=== PATIENT | male | born 1940 | race Caucasian/White ===

== ENCOUNTER 2016-07-06 23:38 | Emergency (ER) | payer MEDICARE, BC ==
[~2016-07-06] VITALS: Ht 172.7 cm; Wt 80.0 kg
[~2016-07-06 23:38] MED LIST: ASPI-94 PO; BENA20 PO; METO50 PO; SIMV40 PO
[2016-07-06 23:40] VITALS: BP 176/79; PULSE 62; RESP 16; TEMP 98; O2SAT 96
[2016-07-06 23:55] VITALS: BP 145/63; PULSE 60; RESP 18; O2SAT 97
[2016-07-07] MEDS ORDERED: ASPI1TAB69 PO (00:22)
[2016-07-07] MEDS ORDERED: METO50TA PO (00:23)
[2016-07-07] MEDS ORDERED: BENA40TA PO (00:23)
[2016-07-07] MEDS ORDERED: SIMV40TA PO (00:23)
--- NOTE | 2016-07-07 00:58 | PD ---
HPI Chief Complaint: Skin Problem Time Seen by Provider: 00:54 Travel History International Travel<30 days: No Contact w/Intl Traveler<30days: No Traveled to known affect area: No History of Present Illness HPI 76-year-old male arrives with bleeding from the left leg. It started suddenly. Application of silk tape stopped bleeding. He denies trauma. He takes aspirin 81 mg daily. He takes no other anticoagulation. He offers no symptom consistent with acute anemia. [facility] Past Medical History High Cholesterol: Yes Diminished Hearing: No Hypertension: Yes Past Surgical History Other Surgery: Yes (5 VEIN SURGERIES TO R LOWER LEG) Social History Alcohol Use: Yes (4 BEERS A DAY) Tobacco Use: Yes (SOCIAL SMOKER) Substance Use: No Allergies-Medications (Allergen,Severity, Reaction): Coded Allergies: No Known Allergies (Unverified , 07/06/16) Reported Meds & Prescriptions Reported Meds & Active Scripts Active Reported Benazepril (Benazepril HCl) 40 Mg Tab 40 Mg PO DAILY Simvastatin 40 Mg Tab 40 Mg PO DAILY Metoprolol Tartrate 50 Mg Tab 50 Mg PO DAILY Aspirin 81 Mg Tabdr 81 Mg PO DAILY Review of Systems General / Constitutional: No: Fever Cardiovascular: No: Chest Pain or Discomfort, Palpitations, Tachycardia, Diaphoresis Physical Exam Narrative GENERAL: Well-nourished well-developed 76-year-old male no acute distress SKIN: Warm and dry. There is a minute focus of arterial bleed along the left lateral lower leg approximately 10 cm above the lateral malleolus. MUSCULOSKELETAL: Extremities without clubbing, cyanosis, or edema. No obvious deformities. 4+ edema bilateral lower extremities. Data Data Last Documented VS Vital Signs Date Time Temp Pulse Resp B/P Pulse Ox O2 Delivery O2 Flow Rate FiO2 07/07/16 01:05 62 16 144/87 97 07/06/16 23:55 Room Air 07/06/16 23:40 98.0 MDM Medical Decision Making Medical Screen Exam Complete: Yes Emergency Medical Condition: Yes Medical Record Reviewed: Yes Differential Diagnosis Anemia, laceration, hypocoagulable state Narrative Course The left lower extremity was dressed with a 4 x 4 and silk tape. The bleeding stopped. Return precautions discussed. Directions for at home management discussed. Diagnosis Primary Impression: Bleeding Referrals: Maxwell Gallardo MD as needed Additional Instructions: You have a choice when it comes to health care, and we are glad that you chose [facility]. Hopefully, we have met your expectations on today's visit. You are welcome to return to [facility] at any time, as we are committed to meeting the health care needs of our community. Med/Other Pt SpecificInfo: No Change to Meds Disposition: 01 DISCHARGE HOME Condition: Umang Lilly MD Jul 07, 2016 00:58
[2016-07-07 01:05] VITALS: BP 144/87
== END 2016-07-07 01:05 | disposition home or self-care (01) ==
LOC: NEPE 23:38
DX: R58 Hemorrhage, not elsewhere classified (principal); E78.00 Pure hypercholesterolemia, unspecified; I10 Essential (primary) hypertension; Z72.0 Tobacco use; Z79.82 Long term (current) use of aspirin
CPT/HCPCS: 99283

== ENCOUNTER 2018-05-23 13:44 | Observation (INO) ==
[2018-05-23] MEDS ORDERED: NIFEdipine 10 MG Capsule PO ONE (16:04)
[2018-05-23] MEDS ORDERED: Atropine Inj 1 MG/ML Vial IV.PUSH ONE (16:04)
--- NOTE | 2018-05-23 16:19 | ED ---
HPI General Chief complaint: Nausea/Vomiting/Diarrhea Stated complaint: GI//Fall/Dizzy Complaint Time Seen by Provider: 05/23/18 15:54 History of Present Illness HPI narrative: This patient was feeling fine yesterday. This morning he woke up feeling lightheaded and was stumbling around. Blood pressures were running over 200 systolic at home. He did not have any headache or chest pain. He stumbled and fell and hit the right side of his face on the ground. No neck symptoms. He did not have motor weakness of arms or legs or sensory loss or speech slurring. He has history of dementia. He is also on Eliquis. He does not know why. Symptom severity is moderate. No alleviating factors. No exacerbating factors. Related Data Home Medications Medication Instructions Recorded Confirmed apixaban [Eliquis] 5 mg PO BID 05/23/18 05/23/18 benazepril 40 mg PO DAILY 05/23/18 05/23/18 donepezil 10 mg PO DAILY 05/23/18 05/23/18 folic acid 0.8 mg PO BID 05/23/18 05/23/18 memantine 10 mg PO BID 05/23/18 05/23/18 metoprolol tartrate 50 mg PO BID 05/23/18 05/23/18 simvastatin 40 mg PO QPM 05/23/18 05/23/18 Allergies Allergy/AdvReac Type Severity Reaction Status Date / Time No Known Allergies Allergy Verified 05/23/18 14:16 Review of Systems ROS: all other systems reviewed are negative [facility] Medical History Medical History Hyperlipemia (Acute) Hypertension (Acute) Social History Social History Second Hand Smoke Exposure: Yes Smoking Status: Current every day smoker Tobacco Type: Cigarettes How Often Do You Have a Drink Containing Alcohol: 4 or more times a week Recent Travel in [facility] within the Last 8 Weeks: No Recent Out of Country Travel within the Last 8 Weeks: No Immunization History Tetanus Immunization: Unsure Exam Narrative Exam Narrative: GENERAL: Well-nourished, well-developed patient in no apparent distress. SKIN: Focused skin assessment reveals no rash and nodules. Skin is Warm and dry. HEAD: Some ecchymosis in the right cheek but the area is nontender. Normocephalic. EYES: Pupils equal and round. No scleral icterus. No injection or drainage. ENT: No nasal bleeding or discharge. Mucous membranes pink and moist. NECK: Trachea midline. No JVD. No midline tenderness CARDIOVASCULAR: Regular rate and rhythm. No murmur appreciated. Heart rate is low in the range of 44-50 RESPIRATORY: No accessory muscle use. Clear to auscultation. Breath sounds equal bilaterally. GASTROINTESTINAL: Abdomen soft, non-tender, nondistended. Hepatic and splenic margins not palpable. MUSCULOSKELETAL: No obvious deformities. No clubbing. No cyanosis. No edema. NEUROLOGICAL: Awake and alert. No obvious cranial nerve deficits. Motor grossly within normal limits. Normal speech. PSYCHIATRIC: Appropriate mood and affect; insight and judgment normal. Course Initial Documented Vital Signs Pulse Rate 45 L 05/23/18 14:12 Respiratory Rate 18 05/23/18 14:12 Blood Pressure 200/82 H 05/23/18 14:12 Pulse Oximetry 99 05/23/18 14:12 Last Documented Vital Signs Pulse Rate 49 L 05/23/18 18:41 Respiratory Rate 17 05/23/18 18:41 Blood Pressure 166/76 H 05/23/18 18:41 Pulse Oximetry 100 05/23/18 18:41 Medical Decision Making MDM Narrative Medical decision making narrative: 78-year-old male with 1 day history of lightheadedness and stumbling with a fall and facial injury. Given his Eliquis therapy, I am going to get a brain CT. Labs have been sent. I do not see any objective neurologic deficit. He is hypertensive and bradycardic. Given him a dose of atropine and a dose of Procardia and will reassess vitals closely. He is maintained on telemetry. Patient has had some significant hypertension and bradycardia issues. Both have improved at present. He is not able to walk however he stumbles and is having ataxia. He would certainly fall over without support. He already fell and injured his head and face once today. He is not stable for outpatient follow-up. Possibly has posterior circulation compromise but hard to know at present. Regular brain CT is negative. Labs are normal. Case reviewed with the hospitalist who will do observation Medical Screen Exam Complete: Yes Emergency Medical Condition: Yes Differential Diagnosis Differential Diagnosis: Intracranial hemorrhage, concussion, hypertensive urgency Medical Records Medical records reviewed: Yes I reviewed the patient's medical records. Lab Data Lab results reviewed: Yes I reviewed the patient's lab results. Result diagrams: 05/23/18 16:27 05/23/18 16:27 Lab Results 05/23/18 05/23/18 05/23/18 Range/Units 15:56 16:27 16:27 WBC 8.1 (4.0-11.0) th/mm3 RBC 4.63 (4.50-5.90) mil/mm3 Hgb 15.6 (13.0-17.0) gm/dL Hct 44.6 (39.0-51.0) % MCV 96.3 (80.0-100.0) fL MCH 33.8 (27.0-34.0) pg MCHC 35.1 (32.0-36.0) % RDW 13.2 (11.6-17.2) % Plt Count 140 L (150-450) th/mm3 MPV 8.8 (7.0-11.0) fL Neut % (Auto) 80.4 H (16.0-70.0) % Lymph % (Auto) 13.6 (9.0-44.0) % Travis % (Auto) 4.9 (0.0-8.0) % Eos % (Auto) 0.9 (0.0-4.0) % Baso % (Auto) 0.2 (0.0-2.0) % Neut # (Auto) 6.6 (1.8-7.7) th/mm3 Lymph # (Auto) 1.1 (1.0-4.8) th/mm3 Travis # (Auto) 0.4 (0.0-0.9) th/mm3 Eos # (Auto) 0.1 (0.0-0.4) th/mm3 Baso # (Auto) 0.0 (0.0-0.2) th/mm3 WBC Differential . Differential Comment Auto diff final Sodium 132 L (136-145) meq/L Potassium 4.1 (3.5-5.1) meq/L Chloride 97 L (98-107) meq/L Carbon Dioxide 30.2 (21.0-32.0) meq/L Anion Gap 5 (5-15) meq/L BUN 19 H (7-18) mg/dL Creatinine 0.89 (0.60-1.30) mg/dL Estimated GFR 83 L (>89) mL/min POC Glucose 94 (68-110) mg/dl Random Glucose 111 H (74-106) mg/dL Calcium 9.0 (8.5-10.1) mg/dL Total Bilirubin 1.0 (0.2-1.0) mg/dL AST 34 (15-37) U/L ALT 41 (12-78) U/L Alkaline Phosphatase 70 (45-117) U/L Total Protein 8.0 (6.4-8.2) g/dL Albumin 4.0 (3.4-5.0) g/dL Imaging Data Attestation: I personally reviewed and interpreted this imaging study as follows : Radiologist's impression: Head CT 05/23/18 16:04 CONCLUSION: 1. Ethmoid sinus disease and right maxillary sinus disease. 2. No acute intracranial findings. . ECG Data EKG Prior to Arrival: No Attestation: I personally reviewed and interpreted this ECG as follows: Prior ECG tracings: not available for review Interpretation: EKG shows a sinus bradycardia at 45. GA interval is 191 ms. No ectopy or ST elevation. Kevin is normal. Discharge Plan Discharge Disposition Patient Disposition: ED Admit(ED Internal Use Only) Discharge Order Discharge Orders: ED Use Only Admit Order (Routine); Ordered 05/23/18 Ordered By: Cullen Patel Discharge Details Diagnosis: Lightheadedness, Ataxia, Unable to ambulate Physicians Team ED Provider: Cullen Patel Primary Care Provider: aMxwell Gallardo Attending Provider: Luda Hicks Discharge Interventions Interventions: Vital Signs Last Done: 05/23/18 18:41 Status ED Status: Admitted Observation Patient
[2018-05-23 16:44] LABS: Baso % (Auto) 0.2 % (0.0-2.0); Eos # (Auto) 0.1 th/mm3 (0.0-0.4); Eos % (Auto) 0.9 % (0.0-4.0); Hematocrit 44.6 % (39.0-51.0); Hemoglobin 15.6 gm/dL (13.0-17.0); Lymph # (Auto) 1.1 th/mm3 (1.0-4.8); Lymph % (Auto) 13.6 % (9.0-44.0); Mean Corpuscular HGB Conc 35.1 % (32.0-36.0); Mean Corpuscular Hemoglobin 33.8 pg (27.0-34.0); Mean Corpuscular Volume 96.3 fL (80.0-100.0); Mean Platelet Volume 8.8 fL (7.0-11.0); Mono # (Auto) 0.4 th/mm3 (0.0-0.9); Mono % (Auto) 4.9 % (0.0-8.0); Neut # (Auto) 6.6 th/mm3 (1.8-7.7); Neut % (Auto) 80.4 % (16.0-70.0); Platelet Count 140 th/mm3 (150-450); Red Blood Count 4.63 mil/mm3 (4.50-5.90); Red Cell Distribution Width 13.2 % (11.6-17.2); White Blood Count 8.1 th/mm3 (4.0-11.0)
[2018-05-23 16:58] LABS: Alanine Aminotransferase 41 U/L (12-78); Anion Gap 5 meq/L (5-15); Aspartate Aminotransferase 34 U/L (15-37); Blood Urea Nitrogen 19 mg/dL (7-18); Carbon Dioxide 30.2 meq/L (21.0-32.0); Chloride 97 meq/L (98-107); Glomerular Filtration Rate 83 mL/min (>89); Glucose,Random 111 mg/dL (74-106); Potassium 4.1 meq/L (3.5-5.1); Sodium 132 meq/L (136-145)
[2018-05-23 16:59] LABS: Alkaline Phosphatase 70 U/L (45-117)
--- NOTE | 2018-05-23 18:12 | CT ---
EXAM DATE: 05/23/2018 6:06 PM EST AGE/SEX: 78 years / Male INDICATIONS: Dizziness. CLINICAL DATA: This is the patient's initial encounter. Patient reports that signs and symptoms have been present for 1 day and indicates a pain score of 0/10. MEDICAL/SURGICAL HISTORY: Hypertension. None. RADIATION DOSE: 44.49 CTDI (mGy) [place] [facility] [place]. . TECHNIQUE: CT of the head without contrast. Using automated exposure control and adjustment of the mA and/or kV according to patient size, radiation dose was kept as low as reasonably achievable to ob tain optimal diagnostic quality images. DICOM format image data is available electronically for revi ew and comparison. FINDINGS: Cerebrum: The ventricles are normal for age. No evidence of midline shift, mass lesion, hemorrhage or acute infarction. No extraaxial fluid collections are seen. Posterior Fossa: The cerebellum and brainstem are intact. The 4th ventricle is midline. The cerebe llopontine angle is unremarkable. Extracranial: Moderate severity partial opacification of the ethmoid sinuses. Right maxillary sinus polyp or retention cyst again seen. Skull: The calvaria is intact. No evidence of skull fracture. CONCLUSION: 1. Ethmoid sinus disease and right maxillary sinus disease. 2. No acute intracranial findings. . Electronically signed by: Mina Salas MD Board Certified Radiologist 05/23/2018 6:10 PM EST
[2018-05-23] MEDS ORDERED: Acetaminophen 325 MG Tablet PO PRN (19:12)
[2018-05-23] MEDS ORDERED: Bisacodyl 10 MG Supp RECTAL PRN (19:12)
--- NOTE | 2018-05-23 19:26 | P.HPIM ---
History of Present Illness Primary Care Physician: Maxwell Gallardo MD History of Present Illness: This is a 78-year-old male with a PMH of HTN, Hyperlipidemia, Dementia and Chronic Anticoagulation who was brought to the ER after fall. Pt reports waking up this morning w/ significant dizziness and gait instability leading to fall. Denies LOC but did have head trauma. No previous h/o similar symptoms in the past. Denies fever, chills, dysuria, chest pain or SOB. On arrival, BP 200/82, HR 45, O2 sat 99% on RA. CBC unremarkable except for platelets 140. Chemistry essentially unremarkable except for BUN 19. CT Head with no acute findings. Pt attempted ambulation while in ER, however significant ataxia, requiring assistance. Diagnosis (1) Ataxia: (2) Fall: (3) Bradycardia: (4) HTN (hypertension): Review of Systems PAST FAMILY HISTORY: Reviewed. No h/o DM or CAD Review of Systems: all other systems reviewed are negative [facility] Medical History Medical History Hyperlipemia (Acute) Hypertension (Acute) Social History Social History Second Hand Smoke Exposure: Yes Smoking Status: Current every day smoker Tobacco Type: Cigarettes How Often Do You Have a Drink Containing Alcohol: 4 or more times a week Recent Travel in [facility] within the Last 8 Weeks: No Recent Out of Country Travel within the Last 8 Weeks: No Immunization History Tetanus Immunization: Unsure Medications and Allergies Allergies Allergy/AdvReac Type Severity Reaction Status Date / Time No Known Allergies Allergy Verified 05/23/18 14:16 Home Medications Medication Instructions Recorded Confirmed Type apixaban [Eliquis] 5 mg PO BID 05/23/18 05/23/18 History benazepril 40 mg PO DAILY 05/23/18 05/23/18 History donepezil 10 mg PO DAILY 05/23/18 05/23/18 History folic acid 0.8 mg PO BID 05/23/18 05/23/18 History memantine 10 mg PO BID 05/23/18 05/23/18 History metoprolol tartrate 50 mg PO BID 05/23/18 05/23/18 History simvastatin 40 mg PO QPM 05/23/18 05/23/18 History Active Medications: Active Medications Acetaminophen (Tylenol) 650 mg PO Q4H PRN PRN Reason: Temp > 100.4 Al Hydroxide/Mg Hydroxide (Milk Of Magnesia Liq) 30 ml PO Q12H PRN PRN Reason: Mild Constipation Apixaban (Eliquis) 5 mg PO BID HERNAN Bisacodyl (Dulcolax Supp) 10 mg RECTAL DAILY PRN PRN Reason: SEVERE CONSITIPATION Sodium Chloride (Ns Inj) 1,000 mls @ 100 mls/hr IV.CONT .Q10H HERNAN Lactulose (Lactulose Liq) 30 ml PO DAILY PRN PRN Reason: SEVERE CONSITIPATION Memantine (Namenda) 10 mg PO BID HERNAN Non-Formulary Medication (Benazepril [Benazepril]) 40 mg PO DAILY HERNAN Non-Formulary Medication (Donepezil [Donepezil]) 10 mg PO DAILY HERNAN Non-Formulary Medication (Folic Acid [Folic Acid]) 0.8 mg PO BID HERNAN Non-Formulary Medication (Simvastatin [Simvastatin]) 40 mg PO QPM HERNAN Ondansetron HCl (Zofran Inj) 4 mg IV.PUSH Q6H PRN PRN Reason: NAUSEA OR VOMITING Senna/Docusate Sodium (Lisa-Colace) 1 tab PO BID [facility] Sennosides (Senokot) 17.2 mg PO Q12H PRN PRN Reason: Moderate Constipation Sodium Chloride (Ns Flush) 2 ml IV.FLUSH BID HERNAN Sodium Chloride (Ns Flush) 2 ml IV.FLUSH PRN PRN PRN Reason: FLUSH AFTER USING IV ACCESS Physical Exam Vital signs: Last Vital Signs Pulse 49 L 05/23/18 18:41 Resp 17 05/23/18 18:41 BP 166/76 H 05/23/18 18:41 Pulse Ox 100 05/23/18 18:41 Intake & Output 05/21/18 05/22/18 05/23/18 05/24/18 06:59 06:59 06:59 06:59 Weight 77.111 kg Narrative: PE: GENERAL: Pleasantly demented elderly white male in no acute distress. SKIN: Focused skin assessment warm and dry. HEENT: PERRLA, EOMI. No scleral icterus or conjunctival pallor. No lid lag or facial droop. CARDIOVASCULAR: Bradycardia, HR 50s. No obvious murmurs to auscultation. No chest tenderness to palpation. RESPIRATORY: No obvious rhonchi or wheezing. Clear to auscultation. Breath sounds equal bilaterally. GASTROINTESTINAL: Abdomen soft, non-tender, nondistended. BS normal. MUSCULOSKELETAL: Extremities without clubbing, cyanosis, or edema. No obvious deformities. NEUROLOGICAL: Awake, alert and oriented x4. No focal neurologic deficits. Moving both upper and lower extremities spontaneously. PSYCHIATRIC: Appropriate mood and affect. Insight and judgment normal. Results Labs CBC & Chem 7: 05/23/18 16:27 05/23/18 16:[address] 05/23/18 16:04 CONCLUSION: 1. Ethmoid sinus disease and right maxillary sinus disease. 2. No acute intracranial findings. . Caprini VTE Risk Assessment Caprini VTE Risk Assessment: No/Low Risk (score <= 1) Caprini Risk Assessment Model: Point Value = 1 Point Value = 2 Point Value = 3 Point Value = 5 Age 41-60 Minor surgery BMI > 25 kg/m2 Swollen legs Varicose veins or History of unexplained or recurrent spontaneous Oral contraceptives or hormone replacement Sepsis (< 1 month) Serious lung disease, including pneumonia (< 1 month) Abnormal pulmonary function Acute myocardial infarction Congestive heart failure (< 1 month) History of inflammatory bowel disease Medical patient at bed rest Age 61-74 Arthroscopic surgery Major open surgery (> 45 min) Laparoscopic surgery (> 45 min) Malignancy Confined to bed (> 72 hours) Immobilizing plaster cast Central venous access Age >= 75 History of VTE Family history of VTE Factor V Leiden Prothrombin 55211C Lupus anticoagulant Anticardiolipin antibodies Elevated serum homocysteine Heparin-induced thrombocytopenia Other congenital or acquired thrombophilia Stroke (< 1 month) Elective arthroplasty Hip, pelvis, or leg fracture Acute spinal cord injury (< 1 month) Prophylaxis Regimen: Total Risk Factor Score Risk Level Prophylaxis Regimen 0-1 Low Early ambulation 2 Moderate Order ONE of the following: *Sequential Compression Device (SCD) *Heparin 5000 units SQ BID 3-4 Higher Order ONE of the following medications: *Heparin 5000 units SQ TID *Enoxaparin/Lovenox 40 mg SQ daily (WT < 150 kg, CrCl > 30 mL/min) *Enoxaparin/Lovenox 30 mg SQ daily (WT < 150 kg, CrCl > 10-29 mL/min) *Enoxaparin/Lovenox 30 mg SQ BID (WT < 150 kg, CrCl > 30 mL/min) AND/OR *Sequential Compression Device (SCD) 5 or more Highest Order ONE of the following medications: *Heparin 5000 units SQ TID (Preferred with Epidurals) *Enoxaparin/Lovenox 40 mg SQ daily (WT < 150 kg, CrCl > 30 mL/min) *Enoxaparin/Lovenox 30 mg SQ daily (WT < 150 kg, CrCl > 10-29 mL/min) *Enoxaparin/Lovenox 30 mg SQ BID (WT < 150 kg, CrCl > 30 mL/min) AND *Sequential Compression Device (SCD) Assessment and Plan (1) Ataxia: Code(s): R27.0 - Ataxia, unspecified Status: Acute (2) Fall: Code(s): W19.XXXA - Unspecified fall, initial encounter Status: Acute (3) Bradycardia: Code(s): R00.1 - Bradycardia, unspecified Status: Acute (4) HTN (hypertension): Code(s): I10 - Essential (primary) hypertension Status: Acute Plan A/P: 1. Fall: s/p mechanical fall at home secondary to dizziness and ataxia, +head trauma, CT Head w/ no acute findings. 2. Ataxia: w/ associated dizziness, CT Head negative as above, symptoms started acutely this am, will check MRI/MRA to eval for possible ischemic event , check B12/Folate, PT for eval/tx, will consult Neurology for further recommendations. Check U/a to eval for possible underlying UTI contributing to symptoms. 3. HTN: Uncontrolled. BP 200's on arrival, hold Metoprolol in light of bradycardia, monitor BP, antihypertensives as needed for BP >180 4. Bradycardia: HR 40's while in ER, +dizziness-unclear if associated w/ bradycardia, will hold Metoprolol as above, telemetry, check Echo to eval for valvular abnormality/cardiomyoptathy. 5. DVT Prophylaxis: On Eliquis at home 6. Social work for d/c planning as needed 7. Case discussed w/ ER physician at length, labs/records/imaging reviewed by me.
--- NOTE | 2018-05-23 21:05 | MR ---
EXAM DATE: 05/23/2018 9:01 PM EST AGE/SEX: 78 years / Male INDICATIONS: Dizziness. Lower extremity weakness. CLINICAL DATA: This is the patient's initial encounter. Patient reports that signs and symptoms have been present for 1 day and indicates a pain score of 5/10. MEDICAL/SURGICAL HISTORY: Aneurysm, abdominal. Hypertension. None. COMPARISON: [place], MR HEAD W/O CONTRAST, 05/23/2018. . TECHNIQUE: 3D [id number] MRA was performed. Source images, multiplanar STS MIP, and 3D volum e MIP reconstructions were reviewed. FINDINGS: There is excellent visualization of the major intracranial arteries out to the second-order branch ve ssels. There is no evidence for aneurysm, vessel truncation or stenosis, and no evidence for vascula r malformation. CONCLUSION: Brain MRA within normal limits. Electronically signed by: Mina Salas MD Board Certified Radiologist 05/23/2018 9:03 PM EST
--- NOTE | 2018-05-23 21:08 | MR ---
EXAM DATE: 05/23/2018 9:01 PM EST AGE/SEX: 78 years / Male INDICATIONS: Dizziness. Lower extremity weakness. CLINICAL DATA: This is the patient's initial encounter. Patient reports that signs and symptoms have been present for 1 day and indicates a pain score of 5/10. MEDICAL/SURGICAL HISTORY: Aneurysm, abdominal. Hypertension. None. [place] [facility] [place]. . TECHNIQUE: Multiplanar, multisequence examination of the brain was performed without contrast. FINDINGS: Cerebrum: The ventricles are normal for age. No evidence of midline shift, mass lesion, hemorrhage or acute infarction. No extraaxial fluid collections are seen. The pituitary gland and suprasellar cistern are normal in configuration. White Matter: No significant signal abnormalities are seen in the white matter. Posterior Fossa: The cerebellum and brainstem are intact. The 4th ventricle is midline. The cerebel lopontine angle is unremarkable. The cerebellar tonsils are normal in position. Diffusion Imaging: No focal areas of restricted diffusion are seen. No evidence of acute infarction . Extracranial: Prominent bilateral ethmoid sinus disease. Polyp or retention cyst in the right maxill devon sinus. CONCLUSION: 1. No acute intracranial findings. 2. Prominent ethmoid sinus disease. 3. Polyp or retention cyst in the right maxillary sinus. Electronically signed by: Mina Salas MD Board Certified Radiologist 05/23/2018 9:06 PM EST
[2018-05-23 21:29] LABS: Bilirubin,Urine Negative (Negative); Clarity,Urine Clear (Clear); Color,Urine Yellow (Yellw/Straw); Glucose,Urine (UA) Negative (Negative); Leukocyte Esterase,Urine Negative (Negative); Mucus,Urine Few /lpf (Occasional); Nitrite,Urine Negative (Negative); Specific Gravity,Urine 1.015 (1.002-1.035)
[2018-05-23] MEDS: Sod Chloride 0.9% Inj 1,000 ML IV.CONT SCH (21:35)
[2018-05-23] MEDS: Senna/Docusate Sodium 8.6/50 MG Tablet PO SCH (21:36)
[2018-05-24 06:07] LABS: Baso % (Auto) 0.2 % (0.0-2.0); Eos # (Auto) 0.1 th/mm3 (0.0-0.4); Eos % (Auto) 1.6 % (0.0-4.0); Hematocrit 42.1 % (39.0-51.0); Hemoglobin 14.5 gm/dL (13.0-17.0); Lymph # (Auto) 1.4 th/mm3 (1.0-4.8); Lymph % (Auto) 18.3 % (9.0-44.0); Mean Corpuscular HGB Conc 34.5 % (32.0-36.0); Mean Corpuscular Volume 95.5 fL (80.0-100.0); Mean Platelet Volume 8.6 fL (7.0-11.0); Mono # (Auto) 0.5 th/mm3 (0.0-0.9); Mono % (Auto) 6.9 % (0.0-8.0); Neut # (Auto) 5.5 th/mm3 (1.8-7.7); Platelet Count 127 th/mm3 (150-450); Red Blood Count 4.41 mil/mm3 (4.50-5.90); Red Cell Distribution Width 13.1 % (11.6-17.2); White Blood Count 7.5 th/mm3 (4.0-11.0)
[2018-05-24] MEDS: Sod Chloride 0.9% Inj 1,000 ML IV.CONT SCH ×2 (06:25→17:56)
[2018-05-24 07:02] LABS: Alanine Aminotransferase 33 U/L (12-78); Albumin 3.2 g/dL (3.4-5.0); Alkaline Phosphatase 56 U/L (45-117); Anion Gap 8 meq/L (5-15); Aspartate Aminotransferase 29 U/L (15-37); Blood Urea Nitrogen 15 mg/dL (7-18); Carbon Dioxide 24.6 meq/L (21.0-32.0); Chloride 100 meq/L (98-107); Glomerular Filtration Rate Greater Than 89 mL/min (>89); Glucose,Random 102 mg/dL (74-106); Potassium 3.8 meq/L (3.5-5.1); Sodium 133 meq/L (136-145); Total Protein 6.4 g/dL (6.4-8.2); Vitamin B12 1068 pg/mL (193-986)
[2018-05-24] MEDS ORDERED: Non-Formulary Drug (Donepezil [Donepezil] 10 MG) PO SCH (09:00)
[2018-05-24] MEDS ORDERED: BENAZEPRIL 40 MG PO SCH (09:00)
[2018-05-24] MEDS: Senna/Docusate Sodium 8.6/50 MG Tablet PO SCH ×2 (09:26→22:56)
[2018-05-24] MEDS: Folic Acid 1 MG Tablet PO SCH (09:26)
[2018-05-24] MEDS: Lisinopril 20 MG Tablet PO SCH (09:29)
--- NOTE | 2018-05-24 10:14 | P.PNIM ---
Subjective Interval history: Follow-up on patient with unsteady gait, closed head injury status post fall. Patient seen and examined. Patient is pleasantly confused. He denies any acute medical complaints or concerns. He denies any headache, dizziness or vision changes. Denies any chest pain or shortness of breath. He denies any numbness, tingling or weakness. Denies any nausea, vomiting or abdominal pain. Physical Exam Vital signs: Last Vital Signs Temp 96.2 F L 05/24/18 08:13 Pulse 66 05/24/18 08:13 Resp 20 05/24/18 08:13 BP 173/79 H 05/24/18 08:13 Pulse Ox 94 L 05/24/18 08:13 Intake & Output 05/22/18 05/23/18 05/24/18 05/25/18 06:59 06:59 06:59 06:59 Intake Total 1000 / 1000 Output Total 900 / 900 Balance 100 / 100 Weight 83.5 kg Narrative: GENERAL: WDWN elderly male patient, INAD. Awake and alert. Sitting up in bed eating breakfast. Oriented to self only. SKIN: Warm and dry. + Ecchymosis with mild edema underneath right eye. HEENT: Normocephalic. Pupils equal and round. No scleral icterus. No injection or drainage. No nasal bleeding or discharge. Mucous membranes pink and moist. NECK: Trachea midline. CARDIOVASCULAR: Regular rate and rhythm. No murmur appreciated. RESPIRATORY: No accessory muscle use. Clear to auscultation. Breath sounds equal bilaterally. GASTROINTESTINAL: Abdomen soft, non-tender, nondistended. Bowel sounds normal. MUSCULOSKELETAL: Extremities without clubbing, cyanosis, or edema. No obvious deformities. NEUROLOGICAL: Awake and alert. Oriented to self. No obvious cranial nerve deficits. Able to move all extremity spontaneously. Normal speech. PSYCHIATRIC: Calm and cooperative. Results Labs CBC & Chem 7: 05/24/18 05:31 05/24/18 05:31 Imaging Imaging: Impressions Head MRI 05/23/18 00:00 CONCLUSION: 1. No acute intracranial findings. 2. Prominent ethmoid sinus disease. 3. Polyp or retention cyst in the right maxillary sinus. Head MRA 05/23/18 00:00 CONCLUSION: Brain MRA within normal limits. Head CT 05/23/18 16:04 CONCLUSION: 1. Ethmoid sinus disease and right maxillary sinus disease. 2. No acute intracranial findings. . Assessment and Plan (1) Ataxia: Code(s): R27.0 - Ataxia, unspecified Status: Acute (2) Fall: Code(s): W19.XXXA - Unspecified fall, initial encounter Status: Acute (3) Bradycardia: Code(s): R00.1 - Bradycardia, unspecified Status: Acute (4) HTN (hypertension): Code(s): I10 - Essential (primary) hypertension Status: Acute Plan 78-year-old male with past medical history significant for hypertension, dyslipidemia, dementia and chronic anticoagulation with dizziness and gait instability admitted with closed head injury status post fall: Fall: s/p mechanical fall at home secondary to dizziness and ataxia with associated dizziness +closed head trauma CT Head w/ no acute findings MRI no acute findings MRA WNL UA neg B12 1068 folate >greater than 20 TSH 0.974 -Neurology consulted, appreciate recommendations -Obtain orthostatic BP measurements -PT eval/tx -fall precautions HTN: Uncontrolled. BP 200's on arrival, hold Metoprolol in light of bradycardia -Continue on home dose of lisinopril 40 mg daily -Hydralazine PRN with parameters -Continue to monitor BP and adjust treatment accordingly Bradycardia: HR 40's while in ER, +dizziness-unclear if associated w/ bradycardia -Continue to hold metoprolol -may resume at lower dose -Continuous cardiac monitoring -check Echo to eval for valvular abnormality/cardiomyopathy. Chronic anticoagulation, patient unable to give history, ?afib -Patient on Eliquis 5 mg twice daily -We will attempt to discuss with later today indication for chronic anticoagulation Demenia: -Continue patient on home dose of memantine and donepezil DVT Prophylaxis: On Eliquis at home Progress Note: Quality VTE Deep Vein Thrombosis/Pulmonary Embolism Present on Admission: No
[2018-05-24] MEDS ORDERED: hydrALAZINE 10 MG Tablet PO PRN (10:23)
--- NOTE | 2018-05-24 11:45 | MB ---
cc: Missy Jiménez MD DATE: 05/24/2018 REASON FOR CONSULTATION: Dizziness. HISTORY OF PRESENT ILLNESS: The patient is 78 years old with a history of hypertension, hyperlipidemia, some dementia, chronic anticoagulation use, woke up the morning of admission with dizziness, unstable, unable to walk properly, found to have a blood pressure of 200/82 with a heart rate of 45, saturating at 99%. CT did not show anything acute. He was, per chart note, atoxic at that time. PAST MEDICAL HISTORY: As described with a history of hyperlipidemia and hypertension. SOCIAL HISTORY: Apparently smokes everyday cigarettes, drinks 4 or more times a week alcohol. HOME MEDICINES: Refer to JUL. PHYSICAL EXAMINATION: VITAL SIGNS: Temperature 96.2, pulse 66, respiratory rate 20, blood pressure 173/79, pulse initially was 45. I believe his beta noris is being held. GENERAL: He is awake and alert. NECK: Supple. HEART: Currently is regular. NEUROLOGIC: He is alert to himself, has difficulty following certain concepts. Pupils are reactive. Visual ruby are full. Face symmetrical. Motor goldstein, no past pointing, has difficulty with [id number], understanding it, but there is no dysmetria, no drift of the legs. Toes are downgoing. Gait is deferred to PT. DIAGNOSTIC DATA: He had an MRI of the brain was unremarkable for any acute event. MRA [place] was unremarkable as well as some sinus disease. LABORATORY DATA: Platelets 127,000. Chemistry: Sodium 133, calcium 8, B12 1068, TSH 0.974. IMPRESSION: Dizziness, may be due to the patient's low heart rate, bradycardia. Would stop his beta noris, continue his Eliquis, I am not sure of the etiology of that unless he has paroxysmal atrial fibrillation. Continue his Aricept for his dementia as well as his Namenda. Fortunately, his imaging is unremarkable. We will have PT ambulate him. Continue current care as doing and if stable, can be possibly discharged today. Missy Jiménez MD DF/ , 10:31 AM , 10:37 AM
--- NOTE | 2018-05-24 14:34 | ECHRPT ---
Indication: SYNCOPE CONCLUSIONS Mildly dilated left ventricle. Wall thickness is measured at the upper limits of normal. The left ventricular systolic function is normal with an estimated ejection fraction in the range of 60-65%. Mitral annular calcification is present. Trace mitral valve regurgitation. Moderate aortic valve stenosis. Aortic valve area is 1.4 cm. Aortic valve mean gradient is 23 mmHg. Moderate aortic valve regurgitation. The estimated pulmonary arterial pressure is 32 mmHg. BP: / HR: Rhythm: Technical Quality: FINDINGS LEFT VENTRICLE Mildly dilated left ventricle. Wall thickness is measured at the upper limits of normal. The left ventricular systolic function is normal with an estimated ejection fraction in the range of 60-65%. RIGHT VENTRICLE Normal right ventricular size and systolic function. LEFT ATRIUM The left atrial size is normal. RIGHT ATRIUM The right atrial size is normal. ATRIAL SEPTUM Normal atrial septal thickness without atrial level shunting by limited color doppler interrogation. AORTA The aortic root and proximal ascending aorta are normal in size on limited imaging. MITRAL VALVE Mitral annular calcification is present. Trace mitral valve regurgitation. AORTIC VALVE Moderate aortic valve stenosis. Aortic valve area is 1.4 cm. Aortic valve mean gradient is 23 mmHg. Moderate aortic valve regurgitation. TRICUSPID VALVE The estimated pulmonary arterial pressure is 32 mmHg. PULMONARY VALVE The pulmonary valve is not well visualized. VESSELS The inferior vena cava is normal in size. PERICARDIUM No pericardial effusion. Shaheed Lyon MD (Electronically Signed) Final Date:24 May 2018 14:33
--- NOTE | 2018-05-24 15:24 | ECG ---
Date Performed: 05/23/2018 Time Performed: 15:49:22 PTAGE: 78 years EKG: MARKED SINUS BRADYCARDIA RBBB ABNORMAL ECG NO PREVIOUS TRACING DOCTOR: Calvin Martinez Interpretating Date/Time 05/24/2018 15:22:43
[2018-05-24] MEDS ORDERED: amLODIPine 5 MG Tablet PO SCH (17:30)
--- NOTE | 2018-05-25 08:08 | P.DCO ---
Diagnosis (1) Ataxia: Status: Acute (2) Fall: Status: Acute (3) Bradycardia: Status: Acute (4) HTN (hypertension): Status: Acute (5) Gait instability: Status: Acute (6) Ataxia: Status: Acute (7) At high risk for injury related to fall: Status: Acute (8) Dementia: Status: Acute Physical Therapy Order: Evaluate and treat, Improve ambulation and Strength and gait training Home Health Nursing Order: Medical education, Signs/symptoms of disease process and Nursing assessment with vital signs Case Management Consult Case Management Consult-Home Health: Yes I have seen patient Landon Trujillo on 05/25/18. My clinical findings support the need for the requested home health care services because: Deconditioned with increased weakness, Limited ability to care for self, Impaired cognition/judgement and High risk of falls I certify that my clinical findings support that this patient is homebound because: Impaired cognitive ability/safety, Unsteady gait/balance, Unsafe to leave home unassisted and Unable to use public transportation
[2018-05-25 08:22] VITALS: BP 178/83; PULSE 84; RESP 18; TEMP 97.7; O2SAT 95
[2018-05-25] MEDS ORDERED: Metoprolol Tartrate 25 MG Tablet PO SCH (09:00)
[2018-05-25] MEDS: Senna/Docusate Sodium 8.6/50 MG Tablet PO SCH (09:25)
[2018-05-25] MEDS: Folic Acid 1 MG Tablet PO SCH (09:26)
[2018-05-25] MEDS: Lisinopril 20 MG Tablet PO SCH (09:26)
--- NOTE | 2018-05-25 15:32 | P.PNIM ---
Subjective Interval history: Follow up on patient with unsteady gait s/p fall, dementia. Patient seen and examined. Patient denies any acute medical complaints or concerns. He wants to know when he can go home. He denies any fever, chills, dizziness, headache, vision changes, focal weakness, chest pain or dyspnea. Physical Exam Vital signs: Last Vital Signs Temp 97.7 F 05/25/18 08:19 Pulse 84 05/25/18 08:19 Resp 18 05/25/18 08:19 BP 178/83 H 05/25/18 08:19 Pulse Ox 95 05/25/18 08:19 Intake & Output 05/23/18 05/24/18 05/25/18 05/26/18 06:59 06:59 06:59 06:59 Intake Total 1000 / 1000 1480 / 1480 Output Total 900 / 900 Balance 100 / 100 1480 / 1480 Weight 83.5 kg Narrative: GENERAL: WDWN elderly male patient, INAD. Awake and alert. SKIN: Warm and dry. + Ecchymosis with mild edema underneath right eye. HEENT: Normocephalic. Pupils equal and round. No scleral icterus. No injection or drainage. No nasal bleeding or discharge. Mucous membranes pink and moist. NECK: Trachea midline. CARDIOVASCULAR: Regular rate and rhythm. +murmur auscultated. RESPIRATORY: No accessory muscle use. Clear to auscultation. Breath sounds equal bilaterally. GASTROINTESTINAL: Abdomen soft, non-tender, nondistended. Bowel sounds normal. MUSCULOSKELETAL: Extremities without clubbing, cyanosis, or edema. No obvious deformities. NEUROLOGICAL: Awake and alert. Oriented to self. No obvious cranial nerve deficits. Able to move all extremity spontaneously. Normal speech. PSYCHIATRIC: Calm and cooperative. Results Labs CBC & Chem 7: 05/24/18 05:31 05/24/18 05:31 Assessment and Plan (1) Ataxia: Code(s): R27.0 - Ataxia, unspecified Status: Acute (2) Fall: Code(s): W19.XXXA - Unspecified fall, initial encounter Status: Acute (3) Bradycardia: Code(s): R00.1 - Bradycardia, unspecified Status: Acute (4) HTN (hypertension): Code(s): I10 - Essential (primary) hypertension Status: Acute (5) Gait instability: Code(s): R26.81 - Unsteadiness on feet Status: Acute (6) Ataxia: Code(s): R27.0 - Ataxia, unspecified Status: Acute (7) At high risk for injury related to fall: Code(s): Z91.81 - History of falling Status: Acute (8) Dementia: Code(s): F03.90 - Unspecified dementia without behavioral disturbance Status: Acute Plan 78-year-old male with past medical history significant for hypertension, dyslipidemia, dementia and chronic anticoagulation with dizziness and gait instability admitted with closed head injury status post fall: Fall: s/p mechanical fall at home secondary to dizziness and ataxia with associated dizziness +closed head trauma CT Head w/ no acute findings MRI no acute findings MRA WNL UA neg B12 1068 folate >greater than 20 TSH 0.974 -Neurology consulted, appreciate recommendations. Recommends continuing Eliquis. Cleared for discharge. -orthostatics positive - discussed slow transitions, use of NAVIN hose. Need close follow up with lathe turner -continue with PT -fall precautions HTN: Uncontrolled. BP 200's on arrival, hold Metoprolol in light of bradycardia -Continue on home dose of lisinopril 40 mg daily - may need to decrease dose, discussed with close follow up with patients lathe turner Dr. Martinez - specifically requested she discuss with him patients continuing on Eliquis given recent fall with closed head injury and concern for future falls -Hydralazine PRN with parameters -Continue to monitor BP and adjust treatment accordingly Bradycardia: HR 40's while in ER, +dizziness-unclear if associated w/ bradycardia ECHO ED 60-65%, moderate AV stenosis -HR now 112, resume metoprolol at lower dose 12.5mg BID -Continuous cardiac monitoring Chronic anticoagulation, patient unable to give history, ?afib -Patient on Eliquis 5 mg twice daily -dw who believe patient may have atrial fibrillation Dementia: -Continue patient on home dose of memantine and donepezil DVT Prophylaxis: On Eliquis at home Discharge patient to home with [facility] PT Condition on discharge: Improved Heart healthy Diet as tolerated Activity per PT recommendations. [facility] PT arranged prior to discharge Rx written: Metoprolol 12.5mg BID Follow-up with primary care physician, lathe turner and Dr. Jiménez of neurology Progress Note: Quality VTE Deep Vein Thrombosis/Pulmonary Embolism Present on Admission: No
== END 2018-05-25 12:28 | disposition home health service (06) ==
LOC: NEPC 13:44 → NEDA 13:44 → NEPHCDU 21:04
PROVIDERS: ADMIT Hospitalist; ATTEND Hospitalist
DX: E78.5 Hyperlipidemia, unspecified; I48.0 Paroxysmal atrial fibrillation; I10 Essential (primary) hypertension; F03.90 Unspecified dementia, unspecified severity, without behavioral disturbance, psychotic disturbance, mood disturbance, and anxiety; S09.90XA Unspecified injury of head, initial encounter; R27.0 Ataxia, unspecified; J32.0 Chronic maxillary sinusitis; Z79.01 Long term (current) use of anticoagulants; Z91.81 History of falling; Z79.899 Other long term (current) drug therapy; F17.210 Nicotine dependence, cigarettes, uncomplicated; Y92.009 Unspecified place in unspecified non-institutional (private) residence as the place of occurrence of the external cause; W01.0XXA Fall on same level from slipping, tripping and stumbling without subsequent striking against object, initial encounter
CPT/HCPCS: 70450; 70544; 70551; 80053; 81001; 82607; 82746; 82948; 82962; 84443; 84484; 85025; 90774; 90784; 93005; 93306; 96361; 96374; 97162; 99285; C8952; G0378; G8987; G8988; J0461; J7030